=== PATIENT | male | born 1955 | race Caucasian/White ===

== ENCOUNTER 2017-04-27 23:45 | Emergency (ER) | payer OTHER ==
[2017-04-27] MEDS ORDERED: Amoxicillin/Clavulanate K 875-125 MG Tab PO ONE (23:46)
[2017-04-27] MEDS ORDERED: Acetaminophen/oxyCODONE 325-5 MG Tab PO ONE (23:46)
[2017-04-28] MEDS ORDERED: Lidocaine 1% 20 ML MDV INJECT ONE (00:17)
[2017-04-28] MEDS ORDERED: Diphtheria,Pertussis(Acell),Tetanus Vaccine 0.5 ML Syringe IM ONE (00:28)
[2017-04-28] MEDS ORDERED: Bacitracin/Neomycin/Polymyxin B Oint 0.9 GM U/D Packet ONE (00:30)
[2017-04-28] MEDS: Bacitracin/Neomycin/Polymyxin B Oint 28.4 GM Tube TOP ONE ×2 (00:49→00:53)
[2017-04-28] MEDS ORDERED: cefTRIAXone 1 GM Vial IM ONE (00:54)
[2017-04-28] MEDS ORDERED: Lidocaine 1% 20 ML MDV ONE (00:57)
[2017-04-28] MEDS ORDERED: Take Home: Acetaminophen/oxyCODONE 325-5 MG, 2 Tab Pack PO ONE (01:29)
[2017-04-28] MEDS ORDERED: Take Home: Amoxicillin/Clavulanate K 875-125 MG Tab, 2 Tab Pack PO ONE (01:30)
--- NOTE | 2017-04-28 01:31 | EDM.PDOC ---
ED HPI GENERAL MEDICAL PROBLEM - General Chief Complaint: Laceration Stated Complaint: "I have laceration to my hand Right Hand Pain Score (Numeric/FACES): 8 - Related Data Allergies Allergy/AdvReac Type Severity Reaction Status Date / Time No Known Allergies Allergy Verified 04/28/17 01:19 Home Meds: Home Meds atorvaSTATin [Lipitor] 40 mg PO BEDTIME 04/28/17 [History] Course - Orders/Labs/Meds Orders: Active Orders 24 hr Category Date Time Status Vaccines to be Administered [RC] PER UNIT ROUTINE Care 04/28/17 00:29 Active Hand Comp Min 3V Rt [CR] Stat Exams 04/27/17 23:52 Taken Amoxicillin/Clavulanate K [Take Home: Amox/Clavulanate Med 04/28/17 01:30 Once 875-12, 2 Tab Pac] 1 packet PO ONETIME ONE Meds: Medications Discontinued Medications Generic Name Dose Route Start Last Admin Trade Name Freq PRN Reason Stop Dose Admin Ceftriaxone Sodium 1 gm 04/28/17 00:54 04/28/17 01:10 Rocephin IM 04/28/17 00:55 1 gm ONETIME ONE Administration Diphtheria/Tetanus/Acell Pertussis 0.5 ml 04/28/17 00:28 04/28/17 00:45 Adacel IM 04/28/17 00:29 0.5 ml .ONCE ONE Administration Lidocaine HCl 20 ml 04/28/17 00:17 04/28/17 00:35 Xylocaine 1% INJECT 04/28/17 00:18 20 ml ONETIME ONE Administration Lidocaine HCl Confirm 04/28/17 00:57 04/28/17 01:10 Xylocaine 1% Administered 04/28/17 00:58 20 ml Dose Administration 20 ml .ROUTE .STK-MED ONE Neomycin/Polymyxin/Bacitracin 1 gm 04/28/17 00:30 04/28/17 00:53 Triple Antibiotic Oint TOP 04/28/17 00:31 1 applic ONETIME ONE Administration Neomycin/Polymyxin/Bacitracin Confirm 04/28/17 00:30 04/28/17 00:52 Triple Antibiotic Oint Administered 04/28/17 00:31 3 each Dose Administration 3 each .ROUTE .STK-MED ONE Oxycodone/Acetaminophen 2 packet 04/28/17 01:29 Take Home: Acetaminophen/Oxycodon, 2 Tab Pack PO 04/28/17 01:30 ONETIME ONE Departure - Discharge Information - My Orders Last 24 Hours: My Active Orders 04/27/17 23:52 Hand Comp Min 3V Rt [CR] Stat 04/28/17 00:29 Vaccines to be Administered [RC] PER UNIT ROUTINE 04/28/17 01:30 Amoxicillin/Clavulanate K [Take Home: Amox/Clavulanate 875-12, 2 Tab Pac] 1 packet PO ONETIME ONE - Assessment/Plan Last 24 Hours: My Active Orders 04/27/17 23:52 Hand Comp Min 3V Rt [CR] Stat 04/28/17 00:29 Vaccines to be Administered [RC] PER UNIT ROUTINE 04/28/17 01:30 Amoxicillin/Clavulanate K [Take Home: Amox/Clavulanate 875-12, 2 Tab Pac] 1 packet PO ONETIME ONE
--- NOTE | 2017-04-28 18:38 | HP ---
CHIEF COMPLAINT: Dog bite. HISTORY OF PRESENT ILLNESS: Eddie is a 62-year-old male who presents to the ER, ambulatory, with concerns of a dog bite to his right hand. He states that he has a 2-year-old hunting dog that has had some anxiety issues and he had reached and opened up the vent in the kennel and the dog turned on him and ended up by grabbing on, latching to his right hand. He states that he has full range of motion of all distal digits. He is unsure whether or not his Tdap is up-to- date. He states that the dog kind of bit down a couple times, as he has multiple puncture wounds to the top aspect of right hand but has a large laceration to the palm aspect of his right hand. He denies any numbness or tingling in the 2nd through 5th digits. He states he has a little bit of a tingling sensation at the distal tip of the right thumb. Currently pain is tolerable. He does state that dog is up on all its immunizations. PAST MEDICAL HISTORY: Chronic illnesses do include history of hypertension and hyperlipidemia. ALLERGIES: HE HAS NO KNOWN DRUG ALLERGIES. CURRENT MEDICATIONS: Include atorvastatin 40 mg at bedtime. REVIEW OF SYSTEMS: Please see HPI. Laceration right hand. PHYSICAL EXAMINATION: VITAL SIGNS: Blood pressure 140/95 with O2 94%, respiratory rate of 20, temp 98.4 with a pulse 82. GENERAL: Pleasant cooperative male. He is relaxing on examination cart. He does not appear to be in any distress whatsoever. Does not appear to be in severe discomfort at this point in time. EXTREMITIES: Examination of the right hand does show multiple puncture wounds/superficial lacerations measuring up to 1 cm in length to the dorsum of the right hand. He does have some mild bleeding noted. He does have a 3.5 cm laceration to the palmar aspect, just proximal to the base of the left thumb. It appeared to go into the subcutaneous tissue. There is a puncture wound to the right lateral aspect of the elbow as well. This does appear to be about a 0.5 cm in diameter. Distal digits are intact. He has full range of motion of his digits. Strength in all distal digits is appropriate as well. I do not notice any tendon disruption. Capillary refill is less than 3 seconds in the distal digits. 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 PROCEDURE: After close examination of all wounds, all wounds were cleansed with Hibiclens and flushed with copious amounts of sterile saline. Using 1% lidocaine, the palmar aspect of the laceration was given local anesthetic with excellent results. Thereafter, we did go and explore the wound to the base. I did have him move distal digits with full range of motion noted in his fingers while I was exploring down to the base. I did not see any tendon involvement. I did not see any fraying of the tendons as they appeared to be all intact. Using a 4-0 Ethilon, 7 sutures were placed without any complications. They were interrupted simple sutures. We had excellent reapproximation of the wound edges. Minimal debridement was noted of the edges for closure. Steri-Strips was then applied to all small wounds, puncture sites on the dorsum of the right hand. No active bleeding was noted. A Steri-Strip was also applied to the right lateral elbow aspect. Tdap was addressed, was updated today, due to unknown last tetanus injection. ASSESSMENT: DOG BITE, 3.5 CM LACERATION TO THE RIGHT HAND AND FOREARM, MULTIPLE PUNCTURE WOUND SECONDARY TO DOG BITE TO THE RIGHT HAND AND FOREARM. PLAN: After closure of large laceration, the patient was not in any discomfort at that point in time. We did discuss the dog bites in detail and the risk of infection. He was given a gram of Rocephin and was given a take-home pack of the Augmentin. He was given a prescription to fill as well. Recommended that he finishes. Due to being from [place], do recommend that he follows up with his primary provider in one week for evaluation of the hand. I advised that if he has any signs of infection, any increase in redness, swelling, drainage, discomfort, he definitely needs to return sooner. He was given 12 tablets of hydrocodone/acetaminophen with one every 6 hours as needed for discomfort. Advised no driving while using pain medication. I did encourage him to use anti-inflammatories for minor discomfort. All questions were answered in detail. The nurse did go ahead and apply wound dressing at this point in time. The patient was ambulatory and left in satisfactory condition. JUAN DAVID/KEYANA /[id number] ADAN
== END 2017-04-28 01:50 | disposition home or self-care (01) ==
LOC: CC.ED 23:45
DX: S61.411A Laceration without foreign body of right hand, initial encounter (principal); S61.012A Laceration without foreign body of left thumb without damage to nail, initial encounter; S51.811A Laceration without foreign body of right forearm, initial encounter; S51.031A Puncture wound without foreign body of right elbow, initial encounter; Z23 Encounter for immunization; W54.0XXA Bitten by dog, initial encounter
CPT/HCPCS: 12002; 73130; 90471; 90715; 96372; 99283; A9270; J0696